=== PATIENT | female | born 1945 | race Caucasian/White ===

== ENCOUNTER 2016-12-20 08:34 | Inpatient (IN) | payer BC, MEDICARE ==
[~2016-12-20] VITALS: Ht 170.2 cm; Wt 85.0 kg
[2016-12-20] MEDS ORDERED: MORPHINE SULFATE 4 MG/ML, 1ML IVPush PRN (09:00)
[2016-12-20] MEDS ORDERED: SODIUM CHLORIDE 0.9% 1,000ML IVBOLUS ONE ×2 (09:00→10:00)
[2016-12-20] MEDS ORDERED: ONDANSETRON 2MG/ML, 2ML IVPush ONE (09:00)
[2016-12-20] MEDS ORDERED: SODIUM CHLORIDE FLUSH 10ML SYR IVF ONE (09:00)
[2016-12-20] MEDS ORDERED: SODIUM CHLORIDE 0.9% 1,000 ML IV ONE (09:00)
[2016-12-20] MEDS ORDERED: MORPHINE SULFATE 4 MG/ML, 1ML ONE (09:22)
[2016-12-20] MEDS ORDERED: ONDANSETRON 2MG/ML, 2ML ONE (09:22)
[2016-12-20 09:29] LABS: HEMATOCRIT 42.4 % (34.6-47.8); HEMOGLOBIN 14.4 g/dL (11.7-16.4); WHITE BLOOD COUNT 14.9 x10^3/uL (3.4-10)
[2016-12-20 09:41] LABS: ASPARTATE AMINO TRANSFERASE 12 U/L (15-37); BLOOD UREA NITROGEN 18 mg/dL (7-18)
[2016-12-20] MEDS ORDERED: AZITHROMYCIN 500 MG in SODIUM CHLORIDE 0.9% 250 ML IVPB ONE (10:00)
[2016-12-20] MEDS ORDERED: CEFTRIAXONE PMX 1GM/50ML 50 ML IVPB ONE (10:00)
[2016-12-20 10:29] LABS: GLUCOSE, CSF 67 mg/dL (40-80)
[2016-12-20] MEDS ORDERED: BISACODYL 10 MG SUPP PR PRN (15:30)
[2016-12-20] MEDS ORDERED: VANCOMYCIN PER PHARMACY MC PRN (15:30)
[2016-12-20] MEDS ORDERED: POLYETHYLENE GLYCOL 17 GM PACKET PO PRN (15:30)
[2016-12-20] MEDS ORDERED: DOCUSATE 100 MG CAPSULE PO PRN (15:30)
[2016-12-20] MEDS ORDERED: PIPERACILLIN/TAZO/PMX 3.375GM 50 ML ONE (15:39)
[2016-12-20] MEDS ORDERED: HEPARIN 5,000 UNITS/ML, 1ML ONE (15:39)
[2016-12-20] MEDS: PIPERACILLIN/TAZO/PMX 3.375GM 50 ML IV SCH ×2 (15:42→23:53)
[2016-12-20] MEDS: HEPARIN 5,000 UNITS/ML, 1ML SQ SCH ×2 (15:45→23:53)
[2016-12-20] MEDS ORDERED: VANCOMYCIN 1,700 MG in SODIUM CHLORIDE 0.9% 250 ML IV ONE (17:30)
[2016-12-20 18:00] VITALS: BP 120/72
[2016-12-20] MEDS: SODIUM CHLORIDE 0.9% 1,000 ML IV SCH ×2 (18:31→23:52)
[2016-12-20 20:10] VITALS: BP 98/59
[2016-12-21 01:38] VITALS: BP 105/65
[2016-12-21 04:58] LABS: HEMATOCRIT 38.2 % (34.6-47.8); HEMOGLOBIN 12.8 g/dL (11.7-16.4); WHITE BLOOD COUNT 11.3 x10^3/uL (3.4-10)
[2016-12-21 05:09] LABS: BLOOD UREA NITROGEN 15 mg/dL (7-18)
[2016-12-21 05:22] LABS: ASPARTATE AMINO TRANSFERASE 22 U/L (15-37)
[2016-12-21] MEDS: PIPERACILLIN/TAZO/PMX 3.375GM 50 ML IV SCH ×3 (07:59→23:30)
[2016-12-21] MEDS: HEPARIN 5,000 UNITS/ML, 1ML SQ SCH ×3 (07:59→23:30)
[2016-12-21 08:03] VITALS: BP 117/71
[2016-12-21] MEDS: ACETAMINOPHEN 325 MG TABLET PO PRN (08:22)
[2016-12-21] MEDS ORDERED: SODIUM PHOSPHATE 20 MMOL in SODIUM CHLORIDE 0.9% 500 ML IV ONE (08:30)
[2016-12-21 08:48] LABS: PATH.CAST-FLAG NOT PRESENT; SPERM-FLAG NOT PRESENT; SRC-FLAG NOT PRESENT; XTAL-FLAG NOT PRESENT; YLC-FLAG NOT PRESENT
[2016-12-21 14:41] VITALS: BP 101/62
[2016-12-21] MEDS: VANCOMYCIN 1,500 MG in SODIUM CHLORIDE 0.9% 250 ML IV SCH (17:54)
[2016-12-21 19:55] VITALS: BP 105/67
[2016-12-22 01:01] VITALS: BP 114/73
[2016-12-22 06:12] LABS: HEMOGLOBIN 12.5 g/dL (11.7-16.4); WHITE BLOOD COUNT 11.3 x10^3/uL (3.4-10)
[2016-12-22 06:16] LABS: BLOOD UREA NITROGEN 9 mg/dL (7-18)
[2016-12-22] MEDS ORDERED: SODIUM CHLORIDE INHALATION 7%, 4 ML NPPB ONE (07:30)
[2016-12-22 07:57] VITALS: BP 108/67
[2016-12-22] MEDS: PIPERACILLIN/TAZO/PMX 3.375GM 50 ML IV SCH ×2 (12:38→20:50)
[2016-12-22] MEDS: HEPARIN 5,000 UNITS/ML, 1ML SQ SCH ×2 (12:38→20:50)
[2016-12-22 17:05] VITALS: BP 113/70
[2016-12-22] MEDS: VANCOMYCIN 1,500 MG in SODIUM CHLORIDE 0.9% 250 ML IV SCH (18:15)
[2016-12-22 20:00] VITALS: BP 100/63
[2016-12-23 02:32] VITALS: BP 111/70
[2016-12-23] MEDS: PIPERACILLIN/TAZO/PMX 3.375GM 50 ML IV SCH (05:10)
[2016-12-23] MEDS: HEPARIN 5,000 UNITS/ML, 1ML SQ SCH ×3 (05:10→20:57)
[2016-12-23 05:11] LABS: HEMATOCRIT 39.7 % (34.6-47.8); HEMOGLOBIN 13.4 g/dL (11.7-16.4); WHITE BLOOD COUNT 8.8 x10^3/uL (3.4-10)
[2016-12-23 05:29] LABS: BLOOD UREA NITROGEN 11 mg/dL (7-18)
[2016-12-23 08:00] VITALS: BP 115/71
[2016-12-23 14:16] VITALS: BP 118/72
[2016-12-23 20:00] VITALS: BP 122/75
[2016-12-23] MEDS: AMOXICILLIN/CLAV 875-125MG TABLET PO SCH (20:57)
[2016-12-23] MEDS: ACETAMINOPHEN 325 MG TABLET PO PRN (21:03)
[2016-12-24 02:00] VITALS: BP 126/73
[2016-12-24] MEDS: HEPARIN 5,000 UNITS/ML, 1ML SQ SCH ×2 (04:00→11:19)
[2016-12-24 05:53] LABS: HEMATOCRIT 41.3 % (34.6-47.8); HEMOGLOBIN 13.9 g/dL (11.7-16.4); WHITE BLOOD COUNT 9.3 x10^3/uL (3.4-10)
[2016-12-24 06:01] LABS: BLOOD UREA NITROGEN 11 mg/dL (7-18)
[2016-12-24 08:26] VITALS: BP 133/79
[2016-12-24] MEDS ORDERED: AMOX1TAB12 PO (09:02)
[2016-12-24] MEDS: AMOXICILLIN/CLAV 875-125MG TABLET PO SCH (09:26)
== END 2016-12-24 12:44 | disposition home or self-care (01) | DRG 871 ==
LOC: ED 11:31 → EDIP 11:32 → ED 11:51 → 4EST 17:18 → DCLOUNGE 12-24 12:30
PROVIDERS: ADMIT Family Medicine; ATTEND Family Medicine
PROC: 009U3ZX Drainage of Spinal Canal, Percutaneous Approach, Diagnostic (ICD-10-PCS; principal; 2016-12-20)
DX: A41.9 Sepsis, unspecified organism (principal); J96.01 Acute respiratory failure with hypoxia; R65.21 Severe sepsis with septic shock; J15.9 Unspecified bacterial pneumonia; N39.0 Urinary tract infection, site not specified; R73.9 Hyperglycemia, unspecified; Z82.3 Family history of stroke; Z90.710 Acquired absence of both cervix and uterus; Z90.89 Acquired absence of other organs; Z90.49 Acquired absence of other specified parts of digestive tract
CPT/HCPCS: 36415; 70450; 71010; 80048; 80053; 81001; 82945; 83036; 83605; 83735; 84100; 84145; 84157; 84443; 85025; 85610; 85730; 87040; 87070; 87086; 87205; 87252; 89051; 93005; 94640; 96361; 96365; 96366; 96368; 96375; J0456; J0696; J1644; J2405; J2543; J3370; J7030; J7040; J7050